=== PATIENT | female | born 1955 | race African-American/Black ===

== ENCOUNTER → 2018-05-07 | Outpatient (CLI) | payer OTHER ==
[2018-05-07 08:48] LABS: CREATININE 0.9 mg/dL (0.6-1.0)
== END ==
LOC: CAT 08:05
PROVIDERS: Internal Medicine
DX: J44.9 Chronic obstructive pulmonary disease, unspecified (principal); I51.7 Cardiomegaly; J98.11 Atelectasis; J98.4 Other disorders of lung

== ENCOUNTER → 2019-04-16 | Outpatient (CLI) | payer OTHER | LOC: RAD 14:27 | DX: R05 Cough (principal) ==

== ENCOUNTER → 2020-09-30 | Outpatient (CLI) | payer OTHER | LOC: CAT 14:06 | PROVIDERS: ATTEND Internal Medicine | DX: R91.8 Other nonspecific abnormal finding of lung field (principal); G89.29 Other chronic pain ==

== ENCOUNTER → 2021-01-21 | Outpatient (CLI) | payer OTHER | LOC: RAD 10:31 | PROVIDERS: ATTEND Internal Medicine | DX: J98.4 Other disorders of lung (principal) ==

== ENCOUNTER → 2021-11-09 | Outpatient (CLI) | payer OTHER | LOC: CAT 07-14 09:23 | PROVIDERS: ATTEND Internal Medicine | DX: R91.1 Solitary pulmonary nodule (principal) ==

== ENCOUNTER → 2021-12-02 | Outpatient (CLI) | payer OTHER ==
[~2021-12-02] MED LIST: AMOXICILLIN 50500 MG PO; NAPROSYN500 MG PO
== END ==
LOC: CAT 09:33
PROVIDERS: ATTEND Internal Medicine
DX: R91.1 Solitary pulmonary nodule (principal); J84.10 Pulmonary fibrosis, unspecified

== ENCOUNTER 2021-12-05 13:32 | Emergency (ER) | payer OTHER ==
[~2021-12-05] VITALS: Ht 157.5 cm; Wt 69.0 kg
[2021-12-05 13:51] VITALS: BP 113/67
[2021-12-05] MEDS ORDERED: NAPROSYN500 MG PO (16:29)
[2021-12-05] MEDS ORDERED: AMOXICILLIN 50500 MG PO (16:29)
== END 2021-12-05 16:56 | disposition home or self-care (01) ==
LOC: ER 13:32
DX: K02.9 Dental caries, unspecified (principal)